=== PATIENT | male | born 1975 | race Two or more races ===

== ENCOUNTER 2019-09-07 04:09 | Emergency (ER) | payer OTHER ==
[~2019-09-07] VITALS: Ht 157.5 cm; Wt 77.1 kg
[2019-09-07 04:14] VITALS: BP 139/91
[2019-09-07 05:13] LABS: Urine Bacteria NONE SEEN /hpf (None Seen); Urine Blood Negative /uL (Negative); Urine Specific Gravity 1.017 (1.001-1.035); Urine WBC <1 /hpf (0 - 3)
[2019-09-07] MEDS ORDERED: LIDOCAINE VISCOUS 2% 15ML UD PO ONE (07:45)
[2019-09-07] MEDS ORDERED: ALUM & MAG HYDROX-SIMETH LIQ(MAALOX) 30 ML PO ONE (07:45)
[2019-09-07] MEDS ORDERED: DONNATAL 5ml ORAL Elix (BELLADONNA ALK-PHENOBARB) PO ONE (07:45)
[2019-09-07 08:04] LABS: Basophils # (auto) 0.1 10 ^3/uL (0-0.2); Basophils % (auto) 0.7 % (0.0-2.0); Eosinophils # (auto) 0 10 ^3/uL (0-0.8); Eosinophils % (auto) 0.3 % (0.0-7.0); Hematocrit 48.1 % (41.0-53.0); Hemoglobin 16.5 g/dL (13.5-17.5); Lymphocytes # (auto) 2.8 10 ^3/uL (0.4-5.4); Lymphocytes % (auto) 29.8 % (10.0-50.0); Mean Corpuscular Hemoglobin 29.6 pg (28.0-32.0); Mean Corpuscular Hgb Conc. 34.3 g/dL (32.0-36.0); Mean Corpuscular Volume 86.1 fL (80.0-100.0); Monocytes # (auto) 0.9 10 ^3/uL (0-1.3); Monocytes % (auto) 9.8 % (0.0-12.0); Neutrophils # (auto) 5.6 10 ^3/uL (1.6-8.6); Neutrophils % (auto) 59.4 % (37.0-80.0); Nucleated Red Blood Cells % 0.1 %; Platelet Count (auto) 278 10^3/uL (140-450); Red Blood Cells 5.59 10^6/uL (4.5-5.90); Red Cell Distribution Width 13.1 % (11.8-14.3); White Blood Cell 9.5 10^3/uL (4.4-10.8)
[2019-09-07 08:23] LABS: Albumin 4.6 g/dL (3.4-5.0); Calcium 9.1 mg/dL (8.5-10.1)
[2019-09-07 08:26] LABS: BUN/Creatinine Ratio 23.6; Bilirubin, Total 0.9 mg/dL (0.2-1.0); Total Protein 8.6 g/dL (6.4-8.2)
== END 2019-09-07 09:00 | disposition home or self-care (01) ==
LOC: EEVIPCON 04:09 → ER 04:09
DX: K29.70 Gastritis, unspecified, without bleeding (principal); R74.0 Nonspecific elevation of levels of transaminase and lactic acid dehydrogenase [LDH]; K21.9 Gastro-esophageal reflux disease without esophagitis
CPT/HCPCS: 36415; 74176; 80053; 81001; 82150; 83690; 85025